=== PATIENT | male | born 1965 | race Caucasian/White ===

== ENCOUNTER → 2022-01-21 | Outpatient (CLI) | payer OTHER, BC ==
--- NOTE | 2022-01-21 14:26 | KCIC ---
MR CERVICAL SPINE WO DATE: 01/21/2022 9:35 AM INDICATION: SPONDYLOSIS/CERVICAL PAIN/LEFT RADICULOPATHY. Neck pain, electrical shocks and itching. Worsening LUE weakness. TECHNIQUE: Multiplanar multisequence magnetic resonance imaging of the cervical spine was performed w ithout administration of intravenous contrast using the standard cervical spine protocol. COMPARISON: None. FINDINGS: Straightening of the cervical lordosis. No acute fracture. Mild chronic height loss at T1. Multilevel degenerative disc desiccation and disc height loss, worst and moderate to severe at C6-7. Fatty dege nerative endplate changes at C6-7. The spinal cord is normal in signal intensity. On the limited views of the cranial cavity and brain, the cerebellum and kelly have normal morphology and signal characteristics. No Chiari malformation. No soft tissue abnormality. Normal signal voids are present in the vertebral arteries. C2-3: No significant spinal canal stenosis or neural foraminal narrowing. C3-4: Disc osteophyte complex. Uncovertebral hypertrophy. Moderate left facet arthropathy. Mild right and moderate to severe left neural foraminal narrowing. No spinal canal stenosis. C4-5: Disc osteophyte contacts. Uncovertebral hypertrophy. Moderate right and mild left neural forami nal narrowing. Mild spinal canal stenosis. C5-6: Disc osteophyte complex. Uncovertebral hypertrophy. Mild bilateral neural foraminal narrowing. Moderate spinal canal stenosis. C6-7: Disc osteophyte complex. Uncovertebral hypertrophy. Moderate bilateral neural foraminal narrowi ng. Mild to moderate spinal canal stenosis. C7-T1: No significant spinal canal stenosis or neural foraminal narrowing. IMPRESSION: Moderate cervical spondylosis, detailed level by level above. Electronically signed by: Huber Castro MD (01/21/2022 2:24 PM) [id number]
== END ==
LOC: KCIC MRI 09:19
PROVIDERS: ATTEND Physician Assistant
DX: M47.812 Spondylosis without myelopathy or radiculopathy, cervical region (principal); M25.78 Osteophyte, vertebrae; M48.02 Spinal stenosis, cervical region; M50.323 Other cervical disc degeneration at C6-C7 level; M51.24 Other intervertebral disc displacement, thoracic region; M79.2 Neuralgia and neuritis, unspecified
CPT/HCPCS: 72141